=== PATIENT | male | born 1985 | race American Indian/Alaskan Native ===

== ENCOUNTER 2017-08-12 06:30 | Observation (INO) | payer BC ==
[2017-08-12] MEDS ORDERED: Sodium Chloride 0.9% 1,000 ML IV STA (07:17)
--- NOTE | 2017-08-12 07:22 | ED PDOC ---
HPI: Abdomen Time Seen by Provider: 08/12/17 07:03 Chief Complaint (Nursing): Abdominal Pain Chief Complaint (Provider): Abdominal Pain History Per: Patient History/Exam Limitations: no limitations Onset/Duration Of Symptoms: Hrs (this morning), Intermittent Episodes Current Symptoms Are (Timing): Still Present Severity: Severe Additional Complaint(s): Alfredito is a 31 y/o male with no past medical history who presents to the ED c/o generalized abdominal pain since this morning. Patient describes the pain as a severe intermittent pain with no associated nausea, vomiting, or diarrhea. He also denies urinary symptoms or chest pain. PMD: Non-CPH Past Medical History Reviewed: Historical Data, Nursing Documentation, Vital Signs Vital Signs: Last Vital Signs Temp 98.3 F 08/12/17 06:36 Pulse 72 08/12/17 09:41 Resp 15 08/12/17 09:41 BP 141/104 H 08/12/17 07:35 Pulse Ox 97 08/12/17 09:42 - Medical History PMH: No Chronic Diseases - Family History Family History: States: Unknown Family Hx - Home Medications Home Medications: Ambulatory Orders Medication Instructions Recorded No Known Home Med 08/12/17 - Allergies Allergies/Adverse Reactions: Allergies Allergy/AdvReac Type Severity Reaction Status Date / Time No Known Allergies Allergy Verified 08/12/17 06:40 Review of Systems ROS Statement: Except As Marked, All Systems Reviewed And Found Negative Cardiovascular: Negative for: Chest Pain Gastrointestinal: Positive for: Abdominal Pain. Negative for: Nausea, Vomiting , Diarrhea Genitourinary Male: Negative for: Dysuria, Frequency, Incontinence, Hematuria Physical Exam - Reviewed Nursing Documentation Reviewed: Yes Vital Signs Reviewed: Yes - Physical Exam Appears: Positive for: Non-toxic, Uncomfortable Head Exam: Positive for: ATRAUMATIC, NORMAL INSPECTION, NORMOCEPHALIC Skin: Positive for: Normal Color, Warm, Dry Eye Exam: Positive for: Normal appearance Cardiovascular/Chest: Positive for: Regular Rate, Rhythm. Negative for: Murmur Respiratory: Positive for: Normal Breath Sounds. Negative for: Respiratory Distress Pulses-Radial (L): 2+ Pulses-Radial (R): 2+ Gastrointestinal/Abdominal: Positive for: Normal Exam, Bowel Sounds, Soft, Mass (No pulsatile masses). Negative for: Tenderness Back: Positive for: Normal Inspection. Negative for: L CVA Tenderness, R CVA Tenderness Extremity: Positive for: Normal ROM. Negative for: Tenderness, Swelling Neurologic/Psych: Positive for: Alert, Oriented - Laboratory Results Result Diagrams: 08/12/17 07:51 08/12/17 07:51 - ECG ECG Rhythm: Positive for: Sinus Rhythm Interpretation Of Abn EKG: ST elevation, ST & T wave abnormality O2 Sat by Pulse Oximetry: 97 (RA) Pulse Ox Interpretation: Normal Medical Decision Making Medical Decision Making: Time: 7:16 Initial Impression: Generalized abdominal pain Initial Plan: --CT Abdomen & Pelvis w/o PO Contrast --EKG --CMP --Lipase --Urine Dip --CBC --Morphine --Pepcid --Zofran Time: 7:31 --Urine drug screen and troponin ordered Time: 8:35 --Chest XR ordered Time: 8:51 FINDINGS: LOWER THORAX: Cardiac size appears upper limits normal. No pleural or pericardial effusion is identified or infiltrate at the lung bases as imaged. LIVER: Unremarkable. No gross lesion or ductal dilatation. GALLBLADDER AND BILE DUCTS: Unremarkable. PANCREAS: Unremarkable. No gross lesion or ductal dilatation. SPLEEN: Unremarkable. ADRENALS: Unremarkable. No mass. KIDNEYS AND URETERS: Unremarkable. No hydronephrosis. No radiodense urolithiasis. VASCULATURE: Unremarkable. No aortic aneurysm. BOWEL: The stomach is mildly distended by retained food and some air. No bowel obstruction is identified grossly. Lack of oral contrast limits evaluation of the large and small bowel, much of which appears collapsed. APPENDIX: Not identified. No gross CT pattern to suggest appendicitis at this time. PERITONEUM: Trace fluid is seen at the inferior right pelvis of uncertain origin. No free air. LYMPH NODES: Unremarkable. No enlarged lymph nodes. BLADDER: Unremarkable. REPRODUCTIVE: Unremarkable. BONES: No destructive bony lesions appreciated or fracture. 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 OTHER FINDINGS: None. IMPRESSION: 1. No radiodense urolithiasis, obstructive uropathy or perinephric reaction is identified bilaterally. Lack of intravenous contrast limits further evaluation the genitourinary tract. 2. Further evaluation or remaining abdominal and pelvic viscera is limited to lack of contrast agents. Nonspecific minimal fluid is seen in the right pelvis inferiorly. Etiology unclear. No bowel obstruction, free intraperitoneal gas or large mass is appreciable on this unenhanced CT exam. Scribe Attestation: Documented by Alin Levy, acting as a scribe for Newton Celis MD. Provider Scribe Attestation: All medical record entries made by the Scribe were at my direction and personally dictated by me. I have reviewed the chart and agree that the record accurately reflects my personal performance of the history, physical exam, medical decision making, and the department course for this patient. I have also personally directed, reviewed, and agree with the discharge instructions and disposition. Disposition - Clinical Impression Clinical Impression: Abdominal pain, Abnormal EKG - Patient ED Disposition Is Patient to be Admitted: Yes - Disposition Disposition Time: 09:59 Condition: FAIR Forms: [facility] (Amharic) - Pt Status Changed To: Hospital Disposition Of: Observation - POA Present On Arrival: None
[2017-08-12] MEDS ORDERED: Morphine 4 MG/ML VIAL ONE ×2 (07:28→09:38)
[2017-08-12 08:02] LABS: BASO % 0.5 % (0.0-2.0); EOS # 0.1 K/uL (0.0-0.7); EOS % 1.9 % (0.0-4.0); HEMOGLOBIN 13.7 g/dL (12.0-18.0); LYMPH # 2.2 K/uL (1.0-4.3); LYMPH % 34.9 % (20.0-40.0); MEAN CELL VOLUME 91.4 fl (80.0-94.0); MEAN CORPUSCULAR HEMOGLOBIN 31.8 pg (27.0-31.0); MEAN CORPUSCULAR HGB CONC 34.7 g/dL (33.0-37.0); MEAN PLATELET VOLUME 8.5 fl (7.2-11.7); MONO # 0.5 K/uL (0.0-0.8); MONO % 7.5 % (0.0-10.0); NEUT # 3.5 K/uL (1.8-7.0); NEUT % 55.2 % (50.0-75.0); NRBC % 0.1 % (0.0-0.0); RBC 4.31 Mil/uL (4.40-5.90); RED CELL DISTRIBUTION WIDTH 12.9 % (11.5-14.5); WHITE BLOOD COUNT 6.3 K/uL (4.8-10.8)
[2017-08-12 08:15] LABS: ALB/GLOB RATIO 1.2 (1.0-2.1); ALBUMIN 4.2 g/dL (3.5-5.0); ALT/SGPT 24 U/L (21-72); AST/SGOT 25 U/L (17-59); BLOOD UREA NITROGEN 13 mg/dl (9-20); CALCIUM 9.4 mg/dL (8.4-10.2); GFR AFRICAN-AMERICAN > 60; GFR NON-AFRICAN AMERICAN > 60; LIPASE 96 U/L (23-300)
--- NOTE | 2017-08-12 08:53 | CT ---
PROCEDURE: CT Abdomen and Pelvis without intravenous contrast HISTORY: r/o kidney stone COMPARISON: None. TECHNIQUE: Helical CT of the abdomen and pelvis was performed without oral or intravenous contrast as per referring physician request. Contrast Dose: None Radiation dose: Total exam DLP = 719.11 mGy-cm. This CT exam was performed using one or more of the following dose reduction techniques: Automated exposure control, adjustment of the mA and/or kV according to patient size, and/or use of iterative reconstruction technique. FINDINGS: LOWER THORAX: Cardiac size appears upper limits normal. No pleural or pericardial effusion is identified or infiltrate at the lung bases as imaged. LIVER: Unremarkable. No gross lesion or ductal dilatation. GALLBLADDER AND BILE DUCTS: Unremarkable. PANCREAS: Unremarkable. No gross lesion or ductal dilatation. SPLEEN: Unremarkable. ADRENALS: Unremarkable. No mass. KIDNEYS AND URETERS: Unremarkable. No hydronephrosis. No radiodense urolithiasis. VASCULATURE: Unremarkable. No aortic aneurysm. BOWEL: The stomach is mildly distended by retained food and some air. No bowel obstruction is identified grossly. Lack of oral contrast limits evaluation of the large and small bowel, much of which appears collapsed. APPENDIX: Not identified. No gross CT pattern to suggest appendicitis at this time. PERITONEUM: Trace fluid is seen at the inferior right pelvis of uncertain origin. No free air. LYMPH NODES: Unremarkable. No enlarged lymph nodes. BLADDER: Unremarkable. REPRODUCTIVE: Unremarkable. BONES: No destructive bony lesions appreciated or fracture. 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 OTHER FINDINGS: None. IMPRESSION: 1. No radiodense urolithiasis, obstructive uropathy or perinephric reaction is identified bilaterally. Lack of intravenous contrast limits further evaluation the genitourinary tract. 2. Further evaluation or remaining abdominal and pelvic viscera is limited to lack of contrast agents. Nonspecific minimal fluid is seen in the right pelvis inferiorly. Etiology unclear. No bowel obstruction, free intraperitoneal gas or large mass is appreciable on this unenhanced CT exam.
[2017-08-12] MEDS ORDERED: Morphine 4 MG/ML VIAL IVP ONE ×2 (09:34→12:08)
[2017-08-12 09:45] LABS: BARBITURATES, UR NEGATIVE (NEGATIVE); BENZODIAZEPINES, UR NEGATIVE (NEGATIVE); PHENCYCLIDINE, UR NEGATIVE (NEGATIVE)
[2017-08-12 09:54] LABS: OPIATES, UR POSITIVE (NEGATIVE)
--- NOTE | 2017-08-12 10:00 | RAD ---
HISTORY: abd pain COMPARISON: No prior. TECHNIQUE: Chest PA and lateral FINDINGS: LUNGS: No active pulmonary disease. PLEURA: No significant pleural effusion identified. No pneumothorax apparent. CARDIOVASCULAR: Cardiomediastinal silhouette at the upper limits of normal in size. OSSEOUS STRUCTURES: No significant abnormalities. VISUALIZED UPPER ABDOMEN: Normal. OTHER FINDINGS: None. IMPRESSION: No active disease.
--- NOTE | 2017-08-12 12:06 | CP.PCM.CON ---
History of Present Illness - History of Present Illness History of Present Illness: 31 y/o b/m with abdominal pain Drug Screen + Marijuana Consult called for EKG which shows early repolarization!! pt has no cardiac Sx Pt may be discharged Past Patient History - Past Social History Smoking Status: Never Smoked - CARDIAC Hx Cardiac Disorders: No - PULMONARY Hx Respiratory Disorders: No - NEUROLOGICAL Hx Neurological Disorder: No - HEENT Hx HEENT Problems: No - RENAL Hx Chronic Kidney Disease: No - ENDOCRINE/METABOLIC Hx Endocrine Disorders: No - HEMATOLOGICAL/ONCOLOGICAL Hx Blood Disorders: No - INTEGUMENTARY Hx Dermatological Problems: No - MUSCULOSKELETAL/RHEUMATOLOGICAL Hx Musculoskeletal Disorders: No - GENITOURINARY/GYNECOLOGICAL Hx Genitourinary Disorders: No - PSYCHIATRIC Hx Psychophysiologic Disorder: No Meds Allergies/Adverse Reactions: Allergies Allergy/AdvReac Type Severity Reaction Status Date / Time No Known Allergies Allergy Verified 08/12/17 06:40 - Medications Medications: Current Medications Sodium Chloride (Sodium Chloride 0.9%) 1,000 mls @ 100 mls/hr IV .Q10H STA Stop: 08/12/17 17:16 Last Admin: 08/12/17 07:30 Dose: 100 mls/hr Results - Vital Signs Recent Vital Signs: Last Vital Signs Temp 99 F 08/12/17 11:01 Pulse 59 L 08/12/17 11:01 Resp 16 08/12/17 11:01 BP 146/62 08/12/17 11:01 Pulse Ox 100 08/12/17 11:01 - Labs Result Diagrams: 08/12/17 07:51 08/12/17 07:51 Labs: Laboratory Results - last 24 hr 08/12/17 08/12/17 08/12/17 07:51 07:51 09:17 WBC 6.3 RBC 4.31 L Hgb 13.7 Hct 39.4 MCV 91.4 MCH 31.8 H MCHC 34.7 RDW 12.9 Plt Count 208 MPV 8.5 Neut % (Auto) 55.2 Lymph % (Auto) 34.9 [place] % (Auto) 7.5 Eos % (Auto) 1.9 Baso % (Auto) 0.5 Neut # 3.5 Lymph # 2.2 [place] # 0.5 Eos # 0.1 Baso # 0.0 Sodium 142 Potassium 3.8 Chloride 101 Carbon Dioxide 25 Anion Gap 20 BUN 13 Creatinine 1.1 Est GFR ( Amer) > 60 Est GFR (Non-Af Amer) > 60 Random Glucose 105 Calcium 9.4 Total Bilirubin 0.6 AST 25 ALT 24 Alkaline Phosphatase 44 Troponin I 0.0120 Total Protein 7.6 Albumin 4.2 Globulin 3.4 Albumin/Globulin Ratio 1.2 Lipase 96 Urine Opiates Screen Positive H Urine Methadone Screen Negative Ur Barbiturates Screen Negative Ur Phencyclidine Scrn Negative Ur Amphetamines Screen Negative U Benzodiazepines Scrn Negative U Oth Cocaine Metabols Negative U Cannabinoids Screen Positive H Assessment & Plan (1) Abnormal EKG Status: Acute - Assessment and Plan (Free Text) Assessment: Early repolarization pt may be discharged
--- NOTE | 2017-08-12 16:00 | CP.PCM.HP ---
History of Present Illness - History of Present Illness History of Present Illness: CC: Abdominal pain 31 y/o M, No chronic PMHx, came to ER [facility] [place] to be evaluated for abdominal pain that began one hour [employer] with no relief. Pt appeared in the ED unit c/o of generalized abdominal pain, cramping type, constant, severe intensity 10:10 non radiated and non associated to n/v/d or any urinary symptom. Worsening symptoms: Abnormal EKG while at ED. BP 158/92. Urine drug screening + for opiates and marijuana. Aggravated factor: Food. Pt denied: Fever, chills, n/v/d, urinary symptoms, CP, palpitations, SOB, chest congestion,cough, dizziness, syncope, sick contact, recent travel out of [facility]. Abd/Pelv CT shows: No radiodense urolithiasis, obstructive uropathy or perineghric reaction is identified b/l. No bowel obstruction, free intraperitoneal gas or mass is appreciated on this unenhance CT. Present on Admission - Present on Admission Any Indicators Present on Admission: No Review of Systems - Constitutional Constitutional: Other (negative) - EENT Eyes: Other (negative) Ears: Other (negative) Nose/Mouth/Throat: Other (negative) - Cardiovascular Cardiovascular: Other (negative) - Respiratory Respiratory: Other (negative) - Gastrointestinal Gastrointestinal: Abdominal Pain, Cramping - Genitourinary Genitourinary: Other (negative) - Musculoskeletal Musculoskeletal: Other (negative) - Integumentary Integumentary: Other (negative) - Neurological Neurological: Other (negaive) - Psychiatric Psychiatric: Other (negative) - Endocrine Endocrine: Other (negative) - Hematologic/Lymphatic Hematologic: Other (negative) Past Patient History - Past Medical History & Family History Past Medical History?: No - Past Social History Smoking Status: Current Some Days Smoker Alcohol: None Drugs: Cannabis, Opiates Home Situation {Lives}: Alone - CARDIAC Hx Cardiac Disorders: No - PULMONARY Hx Respiratory Disorders: No - NEUROLOGICAL Hx Neurological Disorder: No - HEENT Hx HEENT Problems: No - RENAL Hx Chronic Kidney Disease: No - ENDOCRINE/METABOLIC Hx Endocrine Disorders: No - HEMATOLOGICAL/ONCOLOGICAL Hx Blood Disorders: No Hx AIDS: No Hx Human Immunodeficiency Virus (HIV): No - INTEGUMENTARY Hx Dermatological Problems: No - MUSCULOSKELETAL/RHEUMATOLOGICAL Hx Musculoskeletal Disorders: No Hx Falls: No - GENITOURINARY/GYNECOLOGICAL Hx Genitourinary Disorders: No - PSYCHIATRIC Hx Psychophysiologic Disorder: No Hx Substance Use: No - SURGICAL HISTORY Hx Surgeries: No - ANESTHESIA Hx Anesthesia: Yes Hx Anesthesia Reactions: No Hx Malignant Hyperthermia: No Has any member of the family had a problem w/ anesthesia?: No Meds Home Medications: Home Medication List Medication Instructions Recorded Confirmed Type Famotidine [Pepcid] 40 mg PO DAILY #15 tablet 08/12/17 Rx Allergies/Adverse Reactions: Allergies Allergy/AdvReac Type Severity Reaction Status Date / Time No Known Allergies Allergy Verified 08/12/17 06:40 Physical Exam - Head Exam Head Exam: NORMAL INSPECTION - Eye Exam Eye Exam: PERRL - ENT Exam ENT Exam: Normal Exam - Neck Exam Neck exam: Positive for: Normal Inspection - Respiratory Exam Respiratory Exam: NORMAL BREATHING PATTERN - Cardiovascular Exam Cardiovascular Exam: REGULAR RHYTHM - GI/Abdominal Exam GI & Abdominal Exam: Normal Bowel Sounds, Soft - Extremities Exam Extremities exam: Positive for: normal inspection - Back Exam Back exam: NORMAL INSPECTION - Neurological Exam Neurological exam: Alert, Oriented x3 Additional comments: No motor /sensory deficit - Psychiatric Exam Psychiatric exam: Normal Mood - Skin Skin Exam: Warm Results - Vital Signs Recent Vital Signs: Last Vital Signs Temp 99.2 F 08/12/17 15:44 Pulse 57 L 08/12/17 15:44 Resp 16 08/12/17 15:44 BP 116/59 L 08/12/17 15:44 Pulse Ox 99 08/12/17 15:44 reviewed J.P. - Labs Result Diagrams: 08/12/17 07:51 08/12/17 07:51 Labs: Laboratory Results - last 24 hr 08/12/17 08/12/17 08/12/17 07:51 07:51 09:17 WBC 6.3 RBC 4.31 L Hgb 13.7 Hct 39.4 MCV 91.4 MCH 31.8 H MCHC 34.7 RDW 12.9 Plt Count 208 MPV 8.5 Neut % (Auto) 55.2 Lymph % (Auto) 34.9 [place] % (Auto) 7.5 Eos % (Auto) 1.9 Baso % (Auto) 0.5 Neut # 3.5 Lymph # 2.2 [place] # 0.5 Eos # 0.1 Baso # 0.0 Sodium 142 Potassium 3.8 Chloride 101 Carbon Dioxide 25 Anion Gap 20 BUN 13 Creatinine 1.1 Est GFR ( Amer) > 60 Est GFR (Non-Af Amer) > 60 Random Glucose 105 Calcium 9.4 Total Bilirubin 0.6 AST 25 ALT 24 Alkaline Phosphatase 44 Troponin I 0.0120 Total Protein 7.6 Albumin 4.2 Globulin 3.4 Albumin/Globulin Ratio 1.2 Lipase 96 Urine Opiates Screen Positive H Urine Methadone Screen Negative Ur Barbiturates Screen Negative Ur Phencyclidine Scrn Negative Ur Amphetamines Screen Negative U Benzodiazepines Scrn Negative U Oth Cocaine Metabols Negative U Cannabinoids Screen Positive H reviewed J.P. - Imaging and Cardiology CT scan - abdomen Status: Report reviewed by me (Yuliet) CT scan - pelvis Status: Report reviewed by me (Yuliet) Chest x-ray Status: Report reviewed by me (Yuliet) Assessment & Plan (1) Generalized abdominal pain Status: Acute Priority: High (2) Abnormal EKG Status: Acute - Assessment and Plan (Free Text) Plan: Morphine, ASA and rest of of Tx. Cardiology consult. Addendum: Pt was seen by GI home planning consultant salesperson, was tolerating well regular diet, also was seen by personal consultant and was cleared for discharge with Imp. No cardiac sx. GI and Cardiology consult appreciated. Pt improved and stable to be discharged, see instruction medication sheet, f/u with PMD in a week. - Date & Time Date: 08/12/17 Time: 11:30
--- NOTE | 2017-08-12 21:38 | CARD ---
APPROVED REPORT EKG Measurement Heart [id number] <Conclusion> Normal sinus rhythm Minimal voltage criteria for LVH, may be normal variant ST elevation, consider early repolarization, pericarditis, or injury ST & T wave abnormality, consider inferior ischemia Abnormal ECG
[2017-08-13 08:20] VITALS: BP 115/65; PULSE 51; RESP 20; TEMP 98.3; O2SAT 99
[2017-08-13] MEDS ORDERED: Pantoprazole 40 mg EC Tab PO SCH (09:00)
--- NOTE | 2017-08-13 12:59 | CP.PCM.DIS ---
Provider - Provider Date of Admission: 08/12/17 09:56 Attending physician: Dionte Hernandez MD Time Spent in preparation of Discharge (in minutes): 25 Diagnosis - Discharge Diagnosis (1) Generalized abdominal pain Status: Acute Priority: High (2) Abnormal EKG Status: Acute Hospital Course - Lab Results Lab Results: Most Recent Lab Values WBC 6.3 K/uL (4.8-10.8) 08/12/17 07:51 RBC 4.31 Mil/uL (4.40-5.90) L 08/12/17 07:51 Hgb 13.7 g/dL (12.0-18.0) 08/12/17 07:51 Hct 39.4 % (35.0-51.0) 08/12/17 07:51 MCV 91.4 fl (80.0-94.0) 08/12/17 07:51 MCH 31.8 pg (27.0-31.0) H 08/12/17 07:51 MCHC 34.7 g/dL (33.0-37.0) 08/12/17 07:51 RDW 12.9 % (11.5-14.5) 08/12/17 07:51 Plt Count 208 K/uL (130-400) 08/12/17 07:51 MPV 8.5 fl (7.2-11.7) 08/12/17 07:51 Neut % (Auto) 55.2 % (50.0-75.0) 08/12/17 07:51 Lymph % (Auto) 34.9 % (20.0-40.0) 08/12/17 07:51 [place] % (Auto) 7.5 % (0.0-10.0) 08/12/17 07:51 Eos % (Auto) 1.9 % (0.0-4.0) 08/12/17 07:51 Baso % (Auto) 0.5 % (0.0-2.0) 08/12/17 07:51 Neut # 3.5 K/uL (1.8-7.0) 08/12/17 07:51 Lymph # 2.2 K/uL (1.0-4.3) 08/12/17 07:51 [place] # 0.5 K/uL (0.0-0.8) 08/12/17 07:51 Eos # 0.1 K/uL (0.0-0.7) 08/12/17 07:51 Baso # 0.0 K/uL (0.0-0.2) 08/12/17 07:51 Sodium 142 mmol/l (132-148) 08/12/17 07:51 Potassium 3.8 MMOL/L (3.6-5.0) 08/12/17 07:51 Chloride 101 mmol/L (98-107) 08/12/17 07:51 Carbon Dioxide 25 mmol/L (22-30) 08/12/17 07:51 Anion Gap 20 (10-20) 08/12/17 07:51 BUN 13 mg/dl (9-20) 08/12/17 07:51 Creatinine 1.1 mg/dl (0.8-1.5) 08/12/17 07:51 Est GFR ( Amer) > 60 08/12/17 07:51 Est GFR (Non-Af Amer) > 60 08/12/17 07:51 Random Glucose 105 mg/dL (75-110) 08/12/17 07:51 Calcium 9.4 mg/dL (8.4-10.2) 08/12/17 07:51 Total Bilirubin 0.6 mg/dl (0.2-1.3) 08/12/17 07:51 AST 25 U/L (17-59) 08/12/17 07:51 ALT 24 U/L (21-72) 08/12/17 07:51 Alkaline Phosphatase 44 U/L (38-126) 08/12/17 07:51 Troponin I 0.0120 ng/mL (0.00-0.120) 08/12/17 07:51 Total Protein 7.6 G/DL (6.3-8.2) 08/12/17 07:51 Albumin 4.2 g/dL (3.5-5.0) 08/12/17 07:51 Globulin 3.4 gm/dL (2.2-3.9) 08/12/17 07:51 Albumin/Globulin Ratio 1.2 (1.0-2.1) 08/12/17 07:51 Lipase 96 U/L (23-300) 08/12/17 07:51 Urine Opiates Screen Positive (NEGATIVE) H 08/12/17 09:17 Urine Methadone Screen Negative (NEGATIVE) 08/12/17 09:17 Ur Barbiturates Screen Negative (NEGATIVE) 08/12/17 09:17 Ur Phencyclidine Scrn Negative (NEGATIVE) 08/12/17 09:17 Ur Amphetamines Screen Negative (NEGATIVE) 08/12/17 09:17 U Benzodiazepines Scrn Negative (NEGATIVE) 08/12/17 09:17 U Oth Cocaine Metabols Negative (NEGATIVE) 08/12/17 09:17 U Cannabinoids Screen Positive (NEGATIVE) H 08/12/17 09:17 - Date & Time of H&P Date of H&P: 08/12/17 Time of H&P: 11:30 Discharge Exam - Head Exam Head Exam: NORMAL INSPECTION Discharge Plan - Discharge Medications Prescriptions: Famotidine [Pepcid] 40 mg PO DAILY #15 tablet - Follow Up Plan Condition: FAIR Disposition: HOME/ ROUTINE Patient education suggested?: Yes Instructions: Acute Abdominal Pain (DC) Additional Instructions: pt. cleared for discharge to Home today by , and pt. has f/u appointment with pmd on Friday next week
== END 2017-08-13 09:30 | disposition home or self-care (01) ==
LOC: H.ER 06:30 → H.ERHOLD 09:56 → H.TEL 11:18
PROVIDERS: ADMIT Internal Medicine Pulmonary Disease; ATTEND Internal Medicine Pulmonary Disease
DX: R10.84 Generalized abdominal pain (principal); R94.31 Abnormal electrocardiogram [ECG] [EKG]
CPT/HCPCS: 71046; 74176; 80053; 83690; 84484; 85025; 93005; 96374; 96375; 96376; 99285; G0378; G0480; J2270; J2405; J7040